=== PATIENT | female | born 1935 | race Caucasian/White ===

== ENCOUNTER → 2019-01-19 | Outpatient (CLI) | payer MEDICARE ==
[~2019-01-19] MED LIST: ATEN25TA PO; LEVO112T2 PO; LISI40TA PO; TRIA1TAB3 PO
[2019-01-19 14:46] LABS: BASOPHILS # (AUTO) 0.02 x10^3/uL (0-0.1); BASOPHILS % (AUTO) 0 % (0-1); EOSINOPHILS # (AUTO) 0.12 x10^3/uL (0-0.4); EOSINOPHILS % (AUTO) 1 % (1-7); LYMPHOCYTES # (AUTO) 1.47 x10^3/uL (1-3.4); LYMPHOCYTES % (AUTO) 13 % (22-44); MD NO; MEAN CORPUSCULAR HEMOGLOBIN 28.5 pg (27.0-34.8); MEAN CORPUSCULAR HGB CONC 33.3 g/dL (32.4-35.8); MEAN CORPUSCULAR VOLUME 85.6 fL (80-100); MEAN PLATELET VOLUME 9.9 fL (7.4-10.4); MONOCYTES % (AUTO) 7 % (2-9); NEUTROPHILS # (AUTO) 8.68 x10^3/uL (1.8-6.8); NEUTROPHILS % (AUTO) 78 % (42-75); PLATELET COUNT 256 x10^3/uL (130-400); RED BLOOD COUNT 4.75 x10^6/uL (3.82-5.3); RED CELL DISTRIBUTION WIDTH 13.7 % (9.6-15.2)
[2019-01-19 14:49] LABS: INTERNATIONAL NORMALIZED RATIO 1.05 (0.93-1.1)
[2019-01-19 14:51] LABS: ALANINE AMINOTRANSFERASE 17 U/L (12-78); ALBUMIN 4.3 g/dL (3.4-5.0); ANION GAP 10 mmol/L (5-15); CALCIUM 9.6 mg/dL (8.5-10.1); CHLORIDE 101 mmol/L (98-107); CREATININE 2.27 mg/dL (0.55-1.02)
[2019-01-19 14:56] LABS: ALKALINE PHOSPHATASE 88 U/L (45-117); BILIRUBIN,TOTAL 0.8 mg/dL (0.2-1.0); TOTAL PROTEIN 8.1 g/dL (6.4-8.2)
== END | disposition home or self-care (01) ==
LOC: STAR 13:32
PROVIDERS: ATTEND Specialist
DX: Z01.818 Encounter for other preprocedural examination (principal); R19.07 Generalized intra-abdominal and pelvic swelling, mass and lump; I51.7 Cardiomegaly
CPT/HCPCS: 36415; 80053; 82378; 85025; 85610; 85730; 86304; 93005

== ENCOUNTER 2019-01-20 11:15 | Inpatient (IN) | payer MEDICARE ==
[~2019-01-20] VITALS: Ht 157.5 cm; Wt 79.0 kg
[2019-01-20 18:24] VITALS: BP 127/78
[2019-01-20] MEDS: ONDANSETRON 2MG/ML, 2ML IV SCH ×2 (18:30→23:41)
[2019-01-20] MEDS ORDERED: MORPHINE SULFATE 4 MG/ML, 1ML IV PRN (18:30)
[2019-01-20 18:43] LABS: BASOPHILS # (AUTO) 0.05 x10^3/uL (0-0.1); BASOPHILS % (AUTO) 1 % (0-1); EOSINOPHILS # (AUTO) 0.12 x10^3/uL (0-0.4); EOSINOPHILS % (AUTO) 1 % (1-7); LYMPHOCYTES # (AUTO) 1.62 x10^3/uL (1-3.4); LYMPHOCYTES % (AUTO) 15 % (22-44); MD NO; MEAN CORPUSCULAR HEMOGLOBIN 29.1 pg (27.0-34.8); MEAN CORPUSCULAR HGB CONC 33.7 g/dL (32.4-35.8); MEAN CORPUSCULAR VOLUME 86.5 fL (80-100); MEAN PLATELET VOLUME 9.9 fL (7.4-10.4); MONOCYTES # (AUTO) 0.77 x10^3/uL (0.2-0.8); MONOCYTES % (AUTO) 7 % (2-9); NEUTROPHILS # (AUTO) 8.01 x10^3/uL (1.8-6.8); NEUTROPHILS % (AUTO) 76 % (42-75); PLATELET COUNT 238 x10^3/uL (130-400); RED BLOOD COUNT 4.45 x10^6/uL (3.82-5.3); RED CELL DISTRIBUTION WIDTH 13.4 % (9.6-15.2)
[2019-01-20 18:50] LABS: ANION GAP 9 mmol/L (5-15); CALCIUM 9.4 mg/dL (8.5-10.1); CHLORIDE 106 mmol/L (98-107)
[2019-01-20 20:00] VITALS: BP 138/72
[2019-01-20] MEDS: SODIUM CHLORIDE 0.9% 1,000 ML IV SCH (21:09)
[2019-01-20] MEDS: OXYcodone/APAP 5/325MG TABLET PO PRN (23:41)
[2019-01-21 01:08] VITALS: BP 138/62
[2019-01-21] MEDS: SODIUM CHLORIDE 0.9% 1,000 ML IV SCH ×3 (04:11→19:18)
[2019-01-21 05:14] LABS: ANION GAP 9 mmol/L (5-15); CALCIUM 8.5 mg/dL (8.5-10.1); CHLORIDE 104 mmol/L (98-107)
[2019-01-21 05:15] LABS: CREATININE 2.16 mg/dL (0.55-1.02)
[2019-01-21 05:20] LABS: BASOPHILS # (AUTO) 0.04 x10^3/uL (0-0.1); BASOPHILS % (AUTO) 1 % (0-1); EOSINOPHILS # (AUTO) 0.16 x10^3/uL (0-0.4); EOSINOPHILS % (AUTO) 2 % (1-7); LYMPHOCYTES # (AUTO) 1.75 x10^3/uL (1-3.4); LYMPHOCYTES % (AUTO) 23 % (22-44); MD NO; MEAN CORPUSCULAR HEMOGLOBIN 28.9 pg (27.0-34.8); MEAN CORPUSCULAR HGB CONC 33.2 g/dL (32.4-35.8); MEAN CORPUSCULAR VOLUME 86.9 fL (80-100); MEAN PLATELET VOLUME 10.1 fL (7.4-10.4); MONOCYTES # (AUTO) 0.65 x10^3/uL (0.2-0.8); MONOCYTES % (AUTO) 9 % (2-9); NEUTROPHILS # (AUTO) 4.94 x10^3/uL (1.8-6.8); NEUTROPHILS % (AUTO) 66 % (42-75); PLATELET COUNT 186 x10^3/uL (130-400); RED BLOOD COUNT 3.93 x10^6/uL (3.82-5.3); RED CELL DISTRIBUTION WIDTH 13.7 % (9.6-15.2)
[2019-01-21] MEDS: ONDANSETRON 2MG/ML, 2ML IV SCH ×4 (05:30→23:31)
[2019-01-21 07:25] VITALS: BP 134/61
[2019-01-21] MEDS: OXYcodone/APAP 5/325MG TABLET PO PRN ×2 (10:09→23:44)
[2019-01-21] MEDS: LEVOTHYROXINE 112 MCG TABLET PO SCH (14:08)
[2019-01-21 15:45] VITALS: BP 138/74
[2019-01-21 15:53] LABS: MICROSCOPIC NOT IND
[2019-01-21 15:55] LABS: CULTURE INDICATED? NO
[2019-01-21 19:46] VITALS: BP 120/67
[2019-01-21] MEDS ORDERED: TRIAMTERENE-HCTZ 37.5/25 MG TABLET PO SCH (21:00)
[2019-01-22 00:15] VITALS: BP 149/74
[2019-01-22] MEDS: SODIUM CHLORIDE 0.9% 1,000 ML IV SCH ×2 (03:09→16:57)
[2019-01-22 04:50] LABS: CHLORIDE 112 mmol/L (98-107)
[2019-01-22 04:55] LABS: ALBUMIN 3.2 g/dL (3.4-5.0); ANION GAP 6 mmol/L (5-15); CALCIUM 8.2 mg/dL (8.5-10.1); CREATININE 1.84 mg/dL (0.55-1.02)
[2019-01-22] MEDS: ONDANSETRON 2MG/ML, 2ML IV SCH ×3 (05:39→18:30)
[2019-01-22] MEDS: LEVOTHYROXINE 112 MCG TABLET PO SCH (05:41)
[2019-01-22 06:44] VITALS: BP 152/63
[2019-01-22] MEDS: ATENOLOL 25 MG TABLET PO SCH (08:01)
[2019-01-22] MEDS ORDERED: LACTATED RINGERS 1,000 ML IV SCH (09:00)
[2019-01-22] MEDS ORDERED: LORazepam 0.5MG TABLET PO PRN (10:00)
[2019-01-22 13:18] VITALS: BP 178/71
[2019-01-22] MEDS ORDERED: HYDROCORTISONE 25 MG SUPP PR PRN (14:00)
[2019-01-22] MEDS ORDERED: HEMORRHOIDAL OINT, 28 GM (PREP H) RC PRN (14:00)
[2019-01-22 18:49] VITALS: BP 164/72
[2019-01-22] MEDS: OXYcodone/APAP 5/325MG TABLET PO PRN (19:33)
[2019-01-23] MEDS: SODIUM CHLORIDE 0.9% 1,000 ML IV SCH (00:17)
[2019-01-23] MEDS: ONDANSETRON 2MG/ML, 2ML IV SCH ×4 (00:18→18:30)
[2019-01-23 01:36] VITALS: BP 149/69
[2019-01-23 04:48] LABS: ANION GAP 7 mmol/L (5-15); CALCIUM 8.5 mg/dL (8.5-10.1); CHLORIDE 112 mmol/L (98-107); CREATININE 1.54 mg/dL (0.55-1.02)
[2019-01-23 04:49] LABS: INTERNATIONAL NORMALIZED RATIO 1.07 (0.93-1.1); PROTHROMBIN TIME 11.2 Seconds (9.6-11.5)
[2019-01-23] MEDS: OXYcodone/APAP 5/325MG TABLET PO PRN ×3 (05:52→21:15)
[2019-01-23] MEDS: LEVOTHYROXINE 112 MCG TABLET PO SCH (05:53)
[2019-01-23 07:05] VITALS: BP 179/76
[2019-01-23] MEDS: ATENOLOL 25 MG TABLET PO SCH (09:00)
[2019-01-23] MEDS: AMLODIPINE 5 MG TABLET PO SCH (10:26)
[2019-01-23 10:43] LABS: MICROSCOPIC NOT IND
[2019-01-23] MEDS ORDERED: POTASSIUM CHLORIDE 40 MEQ in SODIUM CHLORIDE 0.9% 500 ML IV ONE (11:00)
[2019-01-23] MEDS: LORazepam 0.5MG TABLET PO PRN (11:24)
[2019-01-23] MEDS ORDERED: GOLYTELY 4,000ML ORAL.SOL PO ONE (12:00)
[2019-01-23 18:31] VITALS: BP 184/74
[2019-01-23] MEDS ORDERED: morphine SULFATE 10 MG/ML, 1ML IV PRN (19:19)
[2019-01-23 19:52] VITALS: BP 161/73
[2019-01-24] MEDS ORDERED: LORazepam 2 MG/ML, 1ML IVPush PRN
[2019-01-24] MEDS: ONDANSETRON 2MG/ML, 2ML IV SCH ×4 (00:30→18:08)
[2019-01-24 01:06] VITALS: BP 166/72
[2019-01-24] MEDS: OXYcodone/APAP 5/325MG TABLET PO PRN ×2 (04:46→15:04)
[2019-01-24 05:19] LABS: BASOPHILS # (AUTO) 0.04 x10^3/uL (0-0.1); BASOPHILS % (AUTO) 1 % (0-1); EOSINOPHILS # (AUTO) 0.17 x10^3/uL (0-0.4); EOSINOPHILS % (AUTO) 2 % (1-7); LYMPHOCYTES # (AUTO) 1.33 x10^3/uL (1-3.4); LYMPHOCYTES % (AUTO) 18 % (22-44); MD NO; MEAN CORPUSCULAR HEMOGLOBIN 28.6 pg (27.0-34.8); MEAN CORPUSCULAR VOLUME 86.7 fL (80-100); MEAN PLATELET VOLUME 9.1 fL (7.4-10.4); MONOCYTES # (AUTO) 0.48 x10^3/uL (0.2-0.8); MONOCYTES % (AUTO) 6 % (2-9); NEUTROPHILS # (AUTO) 5.58 x10^3/uL (1.8-6.8); NEUTROPHILS % (AUTO) 73 % (42-75); PLATELET COUNT 202 x10^3/uL (130-400); RED BLOOD COUNT 4.33 x10^6/uL (3.82-5.3); RED CELL DISTRIBUTION WIDTH 13.5 % (9.6-15.2)
[2019-01-24 05:30] LABS: ALBUMIN 3.6 g/dL (3.4-5.0); ANION GAP 7 mmol/L (5-15); CHLORIDE 110 mmol/L (98-107)
[2019-01-24 05:33] LABS: ALANINE AMINOTRANSFERASE 14 U/L (12-78); ALKALINE PHOSPHATASE 76 U/L (45-117); BILIRUBIN,TOTAL 0.6 mg/dL (0.2-1.0); CREATININE 1.51 mg/dL (0.55-1.02)
[2019-01-24] MEDS: LEVOTHYROXINE 112 MCG TABLET PO SCH ×2 (06:00→08:08)
[2019-01-24 07:58] VITALS: BP 172/81
[2019-01-24] MEDS: ATENOLOL 25 MG TABLET PO SCH (08:02)
[2019-01-24] MEDS: LORazepam 0.5MG TABLET PO PRN ×2 (08:03→16:14)
[2019-01-24] MEDS: AMLODIPINE 5 MG TABLET PO SCH (08:05)
[2019-01-24 13:32] VITALS: BP 160/70
[2019-01-24] MEDS ORDERED: FENTANYL PF 250 MCG/5ML ONE (18:22)
[2019-01-24] MEDS ORDERED: INDIGO CARMINE 0.8%, 5ML ONE (18:47)
[2019-01-24] MEDS ORDERED: HEPARIN 1,000 UNITS/ML, 10ML ONE (18:47)
[2019-01-24] MEDS ORDERED: ONDANSETRON 2MG/ML, 2ML ONE (18:53)
[2019-01-24] MEDS ORDERED: CEFAZOLIN 1,000 MG ONE (18:53)
[2019-01-24] MEDS ORDERED: NEOSTIGMINE 1 MG/ML, 10ML ONE (18:53)
[2019-01-24] MEDS ORDERED: PROPOFOL 10 MG/ML, 20ML ONE (18:53)
[2019-01-24] MEDS ORDERED: ROCURONIUM 10MG/ML,5ML ONE (18:53)
[2019-01-24] MEDS ORDERED: SUCCINYLCHOLINE 20 MG/ML, 10ML ONE (18:53)
[2019-01-24] MEDS ORDERED: GLYCOPYRROLATE 0.2MG/1ML, 5ML ONE (18:53)
[2019-01-24] MEDS ORDERED: DEXAMETHASONE 4 MG/ML, 1ML ONE (18:53)
[2019-01-24] MEDS ORDERED: METHYLENE BLUE 10 MG/ML 10ML IV ONE (19:00)
[2019-01-24] MEDS ORDERED: DIAZEPAM 5 MG/ML, 2ML IVPush PRN (19:30)
[2019-01-24] MEDS ORDERED: CEFOTETAN 2 GM ONE (19:30)
[2019-01-24] MEDS ORDERED: ACETAMINOPHEN 325 MG TABLET PO PRN (19:30)
[2019-01-24] MEDS ORDERED: PHENYLEPHRINE 10 MG/ML ONE (19:30)
[2019-01-24] MEDS ORDERED: OXYcodone 5 MG/5 ML ORAL.SOL UDC PO PRN ×2 (19:30→21:00)
[2019-01-24] MEDS ORDERED: ONDANSETRON ODT 8 MG PO PRN (19:30)
[2019-01-24] MEDS ORDERED: ONDANSETRON 2MG/ML, 2ML IV PRN ×2 (19:30→21:00)
[2019-01-24] MEDS ORDERED: PROMETHAZINE 25 MG/ML, 1ML IV PRN ×2 (19:30→21:00)
[2019-01-24] MEDS ORDERED: FENTANYL PF 100 MCG/2ML IV PRN (21:00)
[2019-01-24] MEDS ORDERED: LABETALOL 5MG/ML, 20ML IV PRN (21:00)
[2019-01-24] MEDS ORDERED: hydrALAzine 20 MG/ML, 1ML IV PRN (21:00)
[2019-01-24] MEDS ORDERED: HYDROmorphone 2 MG/ML, 1ML IVPush PRN (21:00)
[2019-01-24] MEDS: FENTANYL PF 100 MCG/2ML IV PRN ×2 (21:12→21:26)
[2019-01-24] MEDS ORDERED: POTASSIUM CHLORIDE 20 MEQ in D5%-0.45% NACL 1,000 ML IV SCH (21:13)
[2019-01-24] MEDS: HYDROmorphone 2 MG/ML, 1ML IVPush PRN ×4 (21:25→21:59)
[2019-01-24 22:45] VITALS: BP 117/67
[2019-01-25] MEDS: ONDANSETRON 2MG/ML, 2ML IV SCH ×4 (00:39→19:04)
[2019-01-25 01:40] VITALS: BP 108/66
[2019-01-25 04:24] LABS: BASOPHILS % (AUTO) 0 % (0-1); EOSINOPHILS % (AUTO) 0 % (1-7); LYMPHOCYTES # (AUTO) 0.29 x10^3/uL (1-3.4); LYMPHOCYTES % (AUTO) 2 % (22-44); MD NO; MEAN CORPUSCULAR HEMOGLOBIN 29.4 pg (27.0-34.8); MEAN CORPUSCULAR HGB CONC 33.7 g/dL (32.4-35.8); MEAN CORPUSCULAR VOLUME 87.3 fL (80-100); MEAN PLATELET VOLUME 9.1 fL (7.4-10.4); MONOCYTES % (AUTO) 5 % (2-9); NEUTROPHILS # (AUTO) 12.22 x10^3/uL (1.8-6.8); NEUTROPHILS % (AUTO) 93 % (42-75); PLATELET COUNT 189 x10^3/uL (130-400); RED BLOOD COUNT 3.38 x10^6/uL (3.82-5.3); RED CELL DISTRIBUTION WIDTH 13.5 % (9.6-15.2)
[2019-01-25 04:38] LABS: ALBUMIN 2.6 g/dL (3.4-5.0); ANION GAP 8 mmol/L (5-15); CALCIUM 7.9 mg/dL (8.5-10.1); CHLORIDE 110 mmol/L (98-107)
[2019-01-25 04:39] LABS: CREATININE 1.54 mg/dL (0.55-1.02)
[2019-01-25] MEDS: D5%-0.45% NACL 1,000 ML IV SCH ×2 (05:48→19:06)
[2019-01-25] MEDS: LEVOTHYROXINE 112 MCG TABLET PO SCH (05:48)
[2019-01-25 06:31] VITALS: BP 100/65
[2019-01-25] MEDS: ATENOLOL 25 MG TABLET PO SCH (09:00)
[2019-01-25] MEDS: AMLODIPINE 5 MG TABLET PO SCH (09:45)
[2019-01-25 13:13] VITALS: BP 123/73
[2019-01-25 21:23] VITALS: BP 109/68
[2019-01-26] MEDS: ONDANSETRON 2MG/ML, 2ML IV SCH ×5 (00:17→23:35)
[2019-01-26 00:37] VITALS: BP 107/67
[2019-01-26] MEDS: LEVOTHYROXINE 112 MCG TABLET PO SCH (05:32)
[2019-01-26] MEDS: D5%-0.45% NACL 1,000 ML IV SCH (05:33)
[2019-01-26 06:16] LABS: ALBUMIN 2.7 g/dL (3.4-5.0); ANION GAP 7 mmol/L (5-15); CALCIUM 8.4 mg/dL (8.5-10.1); CHLORIDE 109 mmol/L (98-107)
[2019-01-26 06:17] LABS: CREATININE 1.95 mg/dL (0.55-1.02)
[2019-01-26 06:43] LABS: MEAN CORPUSCULAR HEMOGLOBIN 29.2 pg (27.0-34.8); MEAN CORPUSCULAR HGB CONC 33.5 g/dL (32.4-35.8); MEAN CORPUSCULAR VOLUME 87.3 fL (80-100); MEAN PLATELET VOLUME 9.5 fL (7.4-10.4); PLATELET COUNT 198 x10^3/uL (130-400); RED BLOOD COUNT 3.74 x10^6/uL (3.82-5.3); RED CELL DISTRIBUTION WIDTH 13.9 % (9.6-15.2)
[2019-01-26 07:21] LABS: BASOPHILS # (AUTO) 0.07 x10^3/uL (0-0.1); BASOPHILS % (AUTO) 0 % (0-1); EOSINOPHILS # (AUTO) 0.01 x10^3/uL (0-0.4); EOSINOPHILS % (AUTO) 0 % (1-7); LYMPHOCYTES % (AUTO) 4 % (22-44); MD SCAN; MONOCYTES # (AUTO) 1.74 x10^3/uL (0.2-0.8); MONOCYTES % (AUTO) 8 % (2-9); NEUTROPHILS # (AUTO) 18.11 x10^3/uL (1.8-6.8); NEUTROPHILS % (AUTO) 87 % (42-75)
[2019-01-26 07:25] VITALS: BP 127/74
[2019-01-26] MEDS ORDERED: FUROSEMIDE 20 MG/2 ML IV ONE (09:00)
[2019-01-26] MEDS: AMLODIPINE 5 MG TABLET PO SCH (09:15)
[2019-01-26] MEDS: ATENOLOL 25 MG TABLET PO SCH (09:15)
[2019-01-26 10:34] VITALS: BP 116/63
[2019-01-26 12:49] VITALS: BP 121/72
[2019-01-26] MEDS ORDERED: ZOSYN PER PHARMACY MC PRN (14:00)
[2019-01-26] MEDS: PIPERACILLIN/TAZO/PMX 2.25GM 50 ML IVPB SCH ×2 (15:03→20:08)
[2019-01-26 19:21] VITALS: BP 97/56
[2019-01-26 20:48] LABS: CULTURE INDICATED? YES; MICROSCOPIC INDICATED
[2019-01-27 01:06] VITALS: BP 133/70
[2019-01-27] MEDS: PIPERACILLIN/TAZO/PMX 2.25GM 50 ML IVPB SCH ×4 (02:19→20:07)
[2019-01-27 05:12] LABS: CHLORIDE 107 mmol/L (98-107)
[2019-01-27 05:14] LABS: ALBUMIN 2.1 g/dL (3.4-5.0); ANION GAP 6 mmol/L (5-15); CREATININE 2.01 mg/dL (0.55-1.02)
[2019-01-27] MEDS: ONDANSETRON 2MG/ML, 2ML IV SCH ×4 (06:24→22:06)
[2019-01-27] MEDS: LEVOTHYROXINE 112 MCG TABLET PO SCH (06:24)
[2019-01-27 07:46] VITALS: BP 135/69
[2019-01-27] MEDS: FUROSEMIDE 40 MG/4 ML IV SCH (08:57)
[2019-01-27] MEDS: AMLODIPINE 5 MG TABLET PO SCH (09:00)
[2019-01-27] MEDS: ATENOLOL 25 MG TABLET PO SCH (09:00)
[2019-01-27] MEDS: POTASSIUM CHLORIDE 20 MEQ TAB.ER.PRT PO SCH (09:29)
[2019-01-27] MEDS: ACETAMINOPHEN 325 MG TABLET PO PRN ×2 (09:37→19:24)
[2019-01-27 13:08] VITALS: BP 130/64
[2019-01-27 18:52] VITALS: BP 119/63
[2019-01-28] MEDS: ACETAMINOPHEN 325 MG TABLET PO PRN ×3 (00:11→21:46)
[2019-01-28 02:01] VITALS: BP 121/72
[2019-01-28] MEDS: PIPERACILLIN/TAZO/PMX 2.25GM 50 ML IVPB SCH ×4 (02:45→20:02)
[2019-01-28 04:52] LABS: ALBUMIN 2.1 g/dL (3.4-5.0); ANION GAP 7 mmol/L (5-15); CALCIUM 8.1 mg/dL (8.5-10.1); CHLORIDE 106 mmol/L (98-107); MEAN CORPUSCULAR HEMOGLOBIN 28.7 pg (27.0-34.8); MEAN CORPUSCULAR HGB CONC 33.5 g/dL (32.4-35.8); MEAN CORPUSCULAR VOLUME 85.7 fL (80-100); MEAN PLATELET VOLUME 9.4 fL (7.4-10.4); PLATELET COUNT 198 x10^3/uL (130-400); RED BLOOD COUNT 2.87 x10^6/uL (3.82-5.3)
[2019-01-28 04:53] LABS: CREATININE 1.95 mg/dL (0.55-1.02)
[2019-01-28] MEDS: ONDANSETRON 2MG/ML, 2ML IV SCH ×4 (05:23→23:57)
[2019-01-28] MEDS: LEVOTHYROXINE 112 MCG TABLET PO SCH (05:29)
[2019-01-28 05:52] LABS: BASOPHILS # (AUTO) 0.03 x10^3/uL (0-0.1); BASOPHILS % (AUTO) 0 % (0-1); EOSINOPHILS # (AUTO) 0.55 x10^3/uL (0-0.4); EOSINOPHILS % (AUTO) 5 % (1-7); LYMPHOCYTES # (AUTO) 1.06 x10^3/uL (1-3.4); LYMPHOCYTES % (AUTO) 9 % (22-44); MD SCAN; MONOCYTES # (AUTO) 0.92 x10^3/uL (0.2-0.8); MONOCYTES % (AUTO) 8 % (2-9); NEUTROPHILS # (AUTO) 9.41 x10^3/uL (1.8-6.8); NEUTROPHILS % (AUTO) 79 % (42-75)
[2019-01-28 07:25] VITALS: BP 134/65
[2019-01-28] MEDS: AMLODIPINE 5 MG TABLET PO SCH (09:00)
[2019-01-28] MEDS: ATENOLOL 25 MG TABLET PO SCH (09:00)
[2019-01-28] MEDS: FUROSEMIDE 40 MG/4 ML IV SCH (09:15)
[2019-01-28] MEDS: POTASSIUM CHLORIDE 20 MEQ TAB.ER.PRT PO SCH (09:21)
[2019-01-28 14:00] VITALS: BP 117/69
[2019-01-28 19:17] VITALS: BP 162/72
[2019-01-29 01:56] VITALS: BP 159/73
[2019-01-29] MEDS: PIPERACILLIN/TAZO/PMX 2.25GM 50 ML IVPB SCH ×2 (02:06→07:56)
[2019-01-29 04:34] LABS: BASOPHILS # (AUTO) 0.02 x10^3/uL (0-0.1); BASOPHILS % (AUTO) 0 % (0-1); EOSINOPHILS # (AUTO) 0.62 x10^3/uL (0-0.4); EOSINOPHILS % (AUTO) 6 % (1-7); LYMPHOCYTES % (AUTO) 12 % (22-44); MD NO; MEAN CORPUSCULAR HEMOGLOBIN 29.6 pg (27.0-34.8); MEAN CORPUSCULAR VOLUME 86.9 fL (80-100); MEAN PLATELET VOLUME 8.9 fL (7.4-10.4); MONOCYTES # (AUTO) 0.97 x10^3/uL (0.2-0.8); MONOCYTES % (AUTO) 10 % (2-9); NEUTROPHILS # (AUTO) 7.38 x10^3/uL (1.8-6.8); NEUTROPHILS % (AUTO) 72 % (42-75); PLATELET COUNT 240 x10^3/uL (130-400); RED BLOOD COUNT 2.95 x10^6/uL (3.82-5.3)
[2019-01-29 04:40] LABS: CALCIUM 8.2 mg/dL (8.5-10.1); CHLORIDE 104 mmol/L (98-107)
[2019-01-29 04:44] LABS: ALBUMIN 2.3 g/dL (3.4-5.0); ANION GAP 8 mmol/L (5-15); CREATININE 1.64 mg/dL (0.55-1.02)
[2019-01-29] MEDS: ONDANSETRON 2MG/ML, 2ML IV SCH ×3 (05:39→18:30)
[2019-01-29] MEDS: LEVOTHYROXINE 112 MCG TABLET PO SCH (05:51)
[2019-01-29] MEDS: FUROSEMIDE 40 MG/4 ML IV SCH (07:57)
[2019-01-29] MEDS: POTASSIUM CHLORIDE 20 MEQ TAB.ER.PRT PO SCH ×2 (07:58→18:41)
[2019-01-29] MEDS: AMLODIPINE 5 MG TABLET PO SCH (08:38)
[2019-01-29] MEDS: ATENOLOL 25 MG TABLET PO SCH (08:39)
[2019-01-29 08:49] VITALS: BP 171/73
[2019-01-29 12:17] VITALS: BP 188/70
[2019-01-29] MEDS: ONDANSETRON ODT 4 MG PO PRN (13:46)
[2019-01-29] MEDS: OXYcodone/APAP 5/325MG TABLET PO PRN ×2 (13:46→20:18)
[2019-01-29] MEDS: AMPICILLIN 500MG CAPSULE PO SCH ×2 (15:24→20:18)
[2019-01-29 18:57] VITALS: BP 159/75
[2019-01-30] MEDS: ONDANSETRON 2MG/ML, 2ML IV SCH (00:30)
[2019-01-30 00:46] VITALS: BP 160/69
[2019-01-30] MEDS: OXYcodone/APAP 5/325MG TABLET PO PRN ×4 (02:42→22:44)
[2019-01-30] MEDS: AMPICILLIN 500MG CAPSULE PO SCH ×4 (02:42→20:02)
[2019-01-30 04:49] LABS: ALBUMIN 2.2 g/dL (3.4-5.0); ANION GAP 6 mmol/L (5-15); CALCIUM 7.8 mg/dL (8.5-10.1); CHLORIDE 102 mmol/L (98-107)
[2019-01-30] MEDS: LEVOTHYROXINE 112 MCG TABLET PO SCH (04:56)
[2019-01-30] MEDS: ONDANSETRON ODT 4 MG PO PRN ×3 (05:40→20:02)
[2019-01-30 07:17] VITALS: BP 136/73
[2019-01-30] MEDS: ATENOLOL 25 MG TABLET PO SCH (10:31)
[2019-01-30] MEDS: AMLODIPINE 5 MG TABLET PO SCH (10:31)
[2019-01-30] MEDS: POTASSIUM CHLORIDE 20 MEQ TAB.ER.PRT PO SCH ×2 (10:31→17:30)
[2019-01-30 13:24] LABS: CLOSTRIDIUM DIFFICILE ANTIGEN NEGATIVE; CLOSTRIDIUM DIFFICILE TOXIN NEGATIVE (Negative)
[2019-01-30 13:46] VITALS: BP 140/73
[2019-01-30] MEDS: FUROSEMIDE 40 MG TABLET PO SCH (13:59)
[2019-01-30 19:05] VITALS: BP 151/70
[2019-01-31 00:31] VITALS: BP 121/69
[2019-01-31] MEDS: AMPICILLIN 500MG CAPSULE PO SCH ×3 (03:34→16:50)
[2019-01-31 04:10] VITALS: BP 148/71
[2019-01-31 04:40] LABS: MEAN CORPUSCULAR HEMOGLOBIN 29.2 pg (27.0-34.8); MEAN CORPUSCULAR HGB CONC 33.8 g/dL (32.4-35.8); MEAN CORPUSCULAR VOLUME 86.4 fL (80-100); MEAN PLATELET VOLUME 8.6 fL (7.4-10.4); PLATELET COUNT 320 x10^3/uL (130-400); RED BLOOD COUNT 3.39 x10^6/uL (3.82-5.3); RED CELL DISTRIBUTION WIDTH 13.9 % (9.6-15.2)
[2019-01-31 04:50] LABS: ALBUMIN 2.7 g/dL (3.4-5.0); ANION GAP 6 mmol/L (5-15); CALCIUM 8.3 mg/dL (8.5-10.1); CHLORIDE 100 mmol/L (98-107)
[2019-01-31 04:54] LABS: ALANINE AMINOTRANSFERASE 25 U/L (12-78); ALKALINE PHOSPHATASE 247 U/L (45-117); BILIRUBIN,TOTAL 0.6 mg/dL (0.2-1.0); CREATININE 1.51 mg/dL (0.55-1.02); TOTAL PROTEIN 6.4 g/dL (6.4-8.2)
[2019-01-31 05:16] LABS: BASOPHILS # (AUTO) 0.04 x10^3/uL (0-0.1); BASOPHILS % (AUTO) 0 % (0-1); EOSINOPHILS # (AUTO) 0.43 x10^3/uL (0-0.4); EOSINOPHILS % (AUTO) 3 % (1-7); LYMPHOCYTES # (AUTO) 1.87 x10^3/uL (1-3.4); LYMPHOCYTES % (AUTO) 15 % (22-44); MD SCAN; MONOCYTES # (AUTO) 1.31 x10^3/uL (0.2-0.8); MONOCYTES % (AUTO) 10 % (2-9); NEUTROPHILS # (AUTO) 9.21 x10^3/uL (1.8-6.8); NEUTROPHILS % (AUTO) 72 % (42-75)
[2019-01-31] MEDS: LEVOTHYROXINE 112 MCG TABLET PO SCH (06:10)
[2019-01-31] MEDS: OXYcodone/APAP 5/325MG TABLET PO PRN ×3 (08:17→18:54)
[2019-01-31] MEDS: AMLODIPINE 5 MG TABLET PO SCH (08:17)
[2019-01-31] MEDS: ATENOLOL 25 MG TABLET PO SCH (08:18)
[2019-01-31] MEDS: POTASSIUM CHLORIDE 20 MEQ TAB.ER.PRT PO SCH ×2 (08:18→16:53)
[2019-01-31] MEDS ORDERED: FUROSEMIDE 40 MG TABLET PO SCH (09:00)
[2019-01-31 09:30] VITALS: BP 123/70
[2019-01-31] MEDS: FUROSEMIDE 40 MG TABLET PO SCH (10:54)
[2019-01-31 15:42] VITALS: BP 123/64
[2019-01-31] MEDS: ONDANSETRON ODT 4 MG PO PRN (18:54)
== END 2019-01-31 19:07 | disposition home or self-care (01) | DRG 357 ==
LOC: 3NW 17:44
PROVIDERS: ADMIT Specialist; ATTEND Specialist
PROC: 0UT70ZZ Resection of Bilateral Fallopian Tubes, Open Approach (ICD-10-PCS; 2019-01-24)
PROC: 0DBU0ZZ Excision of Omentum, Open Approach (ICD-10-PCS; 2019-01-24)
PROC: 0UT20ZZ Resection of Bilateral Ovaries, Open Approach (ICD-10-PCS; principal; 2019-01-24 16:30)
DX: R19.00 Intra-abdominal and pelvic swelling, mass and lump, unspecified site (principal); N13.30 Unspecified hydronephrosis; E87.1 Hypo-osmolality and hyponatremia; E46 Unspecified protein-calorie malnutrition; K56.7 Ileus, unspecified; N17.9 Acute kidney failure, unspecified; N39.0 Urinary tract infection, site not specified; D27.1 Benign neoplasm of left ovary; K75.9 Inflammatory liver disease, unspecified; K21.9 Gastro-esophageal reflux disease without esophagitis; E03.9 Hypothyroidism, unspecified; D64.9 Anemia, unspecified; D72.829 Elevated white blood cell count, unspecified; E66.9 Obesity, unspecified; Z68.31 Body mass index [BMI] 31.0-31.9, adult; E86.0 Dehydration; E87.5 Hyperkalemia; E87.6 Hypokalemia; F41.9 Anxiety disorder, unspecified; N18.9 Chronic kidney disease, unspecified; I13.10 Hypertensive heart and chronic kidney disease without heart failure, with stage 1 through stage 4 chronic kidney disease, or unspecified chronic kidney disease; I27.20 Pulmonary hypertension, unspecified; I35.0 Nonrheumatic aortic (valve) stenosis; B95.2 Enterococcus as the cause of diseases classified elsewhere; K64.9 Unspecified hemorrhoids; R32 Unspecified urinary incontinence; Z80.3 Family history of malignant neoplasm of breast; Z87.891 Personal history of nicotine dependence; Z90.711 Acquired absence of uterus with remaining cervical stump
CPT/HCPCS: 36415; 71045; 76770; 80048; 80053; 80069; 81001; 81003; 82040; 82306; 82570; 83605; 83735; 83970; 84156; 85025; 85610; 85730; 86850; 86900; 87040; 87077; 87086; 87186; 87324; 88304; 88305; 88307; 93306; C1729; G0378; J0690; J1100; J1170; J1644; J1940; J2270; J2405; J2543; J2704; J2710; J3010; J3480; Q0162; C1765; C1769; J0330; J2370; J3490; J7030; J7040; Q9968